=== PATIENT | female | born 1965 | race Caucasian/White ===

== ENCOUNTER → 2017-01-18 | Outpatient (CLI) | payer OTHER | LOC: FIMAGING 10:11 | PROVIDERS: ATTEND Obstetrics & Gynecology Gynecology | DX: Z12.31 Encounter for screening mammogram for malignant neoplasm of breast (principal); Z80.3 Family history of malignant neoplasm of breast | CPT/HCPCS: G0202 ==

== ENCOUNTER → 2017-02-03 | Outpatient (CLI) | payer OTHER | LOC: FIMAGING 10:06 | PROVIDERS: ATTEND Obstetrics & Gynecology Gynecology | DX: Z12.39 Encounter for other screening for malignant neoplasm of breast (principal); R92.8 Other abnormal and inconclusive findings on diagnostic imaging of breast | CPT/HCPCS: G0206 ==

== ENCOUNTER 2017-03-04 08:09 | Emergency (ER) | payer OTHER ==
[2017-03-04 08:26] VITALS: BP 144/89; PULSE 71; RESP 14; TEMP 98.6; O2SAT 95
--- NOTE | 2017-03-04 08:50 | EDPHY ---
H & P Time Seen by Provider: 03/04/17 08:28 HPI/ROS: CHIEF COMPLAINT: hand pain HISTORY OF PRESENT ILLNESS: Patient is a 52-year-old female who presents emergency department with right hand pain x1 week. The patient states she tripped forward striking the medial aspect of her hand. She developed significant swelling and bruising. The swelling and bruising have improved. Bruising is now yellow. However, the patient continues to "irritate it." She states she is having trouble not using it. She continues to walk her dogs. REVIEW OF SYSTEMS: My complete review of systems is negative except as mentioned in the HPI. Past Medical/Surgical History: Denies Social history: Patient does not smoke Smoking Status: Former smoker Physical Exam: General Appearance: Alert and no distress. Head: Pupils equal. Normal. Respiratory: No respiratory distress. Cardiac: regular rate and rhythm. Extremities: patient has mild discoloration on the medial aspect of her hand. The bruising appears old and has a yellowish color. There is no focal neurologic deficit. She has no significant bony tenderness of the hand or wrist. Skin: No rashes or lesions. Neuro: Alert. Normal mood and affect. Constitutional: Initial Vital Signs Temperature (C) 37 C 03/04/17 08:10 Heart Rate 71 03/04/17 08:10 Respiratory Rate 14 03/04/17 08:10 Blood Pressure 144/89 H 03/04/17 08:10 O2 Sat (%) 95 03/04/17 08:10 O2 Delivery Mode Room Air Allergies/Adverse Reactions: ampicillin Allergy (Verified 03/04/17 08:18) shellfish derived Allergy (Verified 03/04/17 08:18) Home Medications: Medication Instructions Recorded Advil 03/04/17 Obcp 03/04/17 Medical Decision Making - Diagnostics Imaging Results: Imaging Impressions Hand X-Ray 03/04/17 08:17 Impression: No acute osseous findings. ED Course/Re-evaluation: In the emergency department I discussed possible etiologies with the patient. I answered all her questions. She consented to x-ray. Right hand x-ray: No acute disease noted. I discussed the results with the patient. I again answer questions. She was placed in a thumb spica splint. She will follow up with Orthopedics. She was given warnings prior to leaving. Differential Diagnosis: My differential includes but is not limited to fracture, dislocation, contusion , sprain, neurovascular injury Departure - Departure Disposition: Home, Routine, Self-Care Clinical Impression: Contusion of right hand Qualifiers: Encounter type: initial encounter Qualified Code(s): S60.221A - Contusion of right hand, initial encounter Condition: Good Instructions: Contusion in Adults (ED) Additional Instructions: Continue to wear splint for comfort. If you continue to have discomfort and pain follow up with Dr. Smyth. 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 Your x-ray did not show any broken bones. Referrals: Belia Smyth MD [Medical Doctor] - 5-7 days, if not improved
== END 2017-03-04 09:03 | disposition home or self-care (01) ==
LOC: CED 08:09
DX: S60.221A Contusion of right hand, initial encounter (principal); Z87.891 Personal history of nicotine dependence; W18.40XA Slipping, tripping and stumbling without falling, unspecified, initial encounter
CPT/HCPCS: 73130-PO; L3807

== ENCOUNTER → 2018-03-01 | Outpatient (CLI) | payer OTHER | LOC: FIMAGING 14:08 | PROVIDERS: ATTEND Physician Assistant Medical | DX: R92.8 Other abnormal and inconclusive findings on diagnostic imaging of breast (principal) ==